=== PATIENT | female | born 1960 | race Caucasian/White ===

== ENCOUNTER 2016-09-15 09:46 | Observation (INO) | payer MEDICAID ==
[2016-09-15 09:52] VITALS: BMI 33.0
[2016-09-15 09:54] VITALS: RESP 18
--- NOTE | 2016-09-15 10:31 | C.PDOC ---
History Of Present Illness 56yr old female referred by Dr. Martinez, presents to the ER for persistent foreign body sensation in the right tonsils for the past 2 months. Patient states the feeling started after eating fish. Patient states the pain is sharp and localized. Patient is referred for a CT scan. Patient denies fever, nausea, vomiting, throat swelling, neck pain, weakness or numbness. REFERRED DR MARTINEZ FOR PERSIST FB SENSATION R TONSIL X 2 MONTHS. PS ONSET SINCE EATING FISH. SHARP, LOCALIZED. SP ABX, DEX BUT NO IMPROVE. REFERRED FOR CT EXAM NAD NONTOXIC HEENT MILD R TONSIL/POST PHARYNX SWELL; NO EXUDATE, ERYTHEMA; UVULA MIDLINE; NO DROOL ,VOICE ABN Time Seen by Provider: 09/15/16 10:25 Chief Complaint (Nursing): ENT Problem History Per: Patient History/Exam Limitations: None Onset/Duration Of Symptoms: Persistent (2 months) Current Symptoms Are (Timing): Still Present Past Medical History Reviewed: Historical Data, Nursing Documentation, Vital Signs Vital Signs: Last Vital Signs Temp 98.6 F 09/15/16 09:52 Pulse 69 09/15/16 09:52 Resp 18 09/15/16 09:52 BP 132/85 09/15/16 09:52 Pulse Ox 98 09/15/16 11:09 Family History: States: No Known Family Hx Review Of Systems Except As Marked, All Systems Reviewed And Found Negative. Constitutional: Negative for: Fever ENT: Positive for: Other (Foreign body sensation in the tonsils ). Negative for : Throat Swelling Gastrointestinal: Negative for: Nausea, Vomiting Musculoskeletal: Negative for: Neck Pain Neurological: Negative for: Weakness, Numbness Physical Exam - Physical Exam Appears: Non-toxic, No Acute Distress Skin: Warm, Dry, No Rash Head: Atraumatic, Normacephalic Oral Mucosa: Moist Gingiva: Normal Appearing Throat: No Erythema, No Exudate, No Drooling, Other (Mild right tonsil, posterior pharynx swelling. Uvula is midline. ) Neck: Normal, Normal ROM, Supple Chest: Symmetrical, No Tenderness Cardiovascular: Rhythm Regular, No Friction Rub, No Murmur Respiratory: Normal Breath Sounds, No Rales, No Rhonchi, No Wheezing, No Plerual Rub Gastrointestinal/Abdominal: Normal Exam, Soft, No Tenderness, No Guarding, No Rebound Extremity: Normal ROM, No Swelling Neurological/Psych: Oriented x3, Normal Speech, Normal Motor ED Course And Treatment - Laboratory Results Result Diagrams: 09/15/16 11:24 09/15/16 11:24 O2 Sat by Pulse Oximetry: 98 Progress - Re-Evaluation Re-evaluation Note: 09/15/16 10:[address] MARTINEZ Medical Decision Making Medical Decision Making: PLAN: * CT - Neck * CBC * Admit to hospital ED OBSERVATION Discharge: Yes Date of observation admission: 09/15/16 Time of observation admission: 10:30 - Observation admission statement Patient is being placed in observation because:: TONSIL FB SENSATION - Goals of Observation Goals of observation are:: RO FB, ABSCESS - Progress Note Progress Note: 09/15/16 16:10 D/W DR MARTINEZ AWARE OF CT FINDINGS REQUESTS DC FLEXERIL RX X 7 DAYS, FU OFFICE NAD EXAM [facility] Disposition Counseled Patient/Family Regarding: Studies Performed, Diagnosis, Need For Followup, Rx Given - Disposition Disposition: HOME/ ROUTINE Disposition Time: 16:11 Condition: IMPROVED - Clinical Impression Clinical Impression: Throat pain - Scribe Statement The provider has reviewed the documentation as recorded by the Janae Bell Provider Attestation: All medical record entries made by the Janae were at my direction and personally dictated by me. I have reviewed the chart and agree that the record accurately reflects my personal performance of the history, physical exam, medical decision making, and the department course for this patient. I have also personally directed, reviewed, and agree with the discharge instructions and disposition.
[2016-09-15 11:38] LABS: BASO % 0.6 % (0.0-2.0); EOS # 0.1 K/uL (0.0-0.7); EOS % 1.3 % (0.0-4.0); HEMATOCRIT 42.4 % (34.0-47.0); LYMPH # 1.7 K/uL (1.0-4.3); LYMPH % 29.5 % (20.0-40.0); MEAN CELL VOLUME 88.8 fL (81.0-99.0); MEAN CORPUSCULAR HEMOGLOBIN 29.9 pg (27.0-31.0); MEAN CORPUSCULAR HGB CONC 33.6 g/dL (33.0-37.0); MEAN PLATELET VOLUME 8.4 fL (7.2-11.7); MONO # 0.6 K/uL (0.0-0.8); MONO % 10.6 % (0.0-10.0); NRBC % 0.1 % (0.0-2.0); RED CELL DISTRIBUTION WIDTH 13.4 % (11.5-14.5); WHITE BLOOD COUNT 5.9 K/uL (4.8-10.8)
[2016-09-15 11:39] LABS: CHLORIDE 100 mmol/L (98-107); POTASSIUM 4.2 mmol/L (3.6-5.2); SODIUM 138 mmol/L (132-148)
[2016-09-15 11:42] LABS: BLOOD UREA NITROGEN 10 mg/dL (7-17); CARBON DIOXIDE 25 mmol/L (22-30); GFR AFRICAN-AMERICAN > 60; GLUCOSE,RANDOM 89 mg/dL (65-105)
[2016-09-15 11:43] LABS: CALCIUM 9.4 mg/dl (8.6-10.4)
[2016-09-15] MEDS ORDERED: Iohexol 350mg/ml 100 ML ONE (14:59)
--- NOTE | 2016-09-15 16:08 | CT ---
CT scan neck dated 09/15/2016. History: Right tonsil foreign body sensation. Swelling. Contiguous helical/transaxial sections of the neck performed in standard fashion following intravenous injection of approximately 100 cc of Omnipaque 350 contrast material. Additional 2 dimensional sagittal and coronal reformats provided. No prior study available for comparison. Radiation dose. Total DLP = 384.6 mGy-cm. Findings: Study is limited due to significant streak and beam hardening artifact arising from dental amalgam, obscuring portions of the oral cavity. The tonsils are not well delineated. Both tonsils appear prominent however no obvious peritonsillar abscess seen. No radiopaque foreign bodies are identified Parapharyngeal fat spaces are relatively symmetric. There is mild asymmetry of the vallecula which could be due to some residual and or retained secretion as well some encroachment of lingual tonsil. Free margin of the epiglottis is unremarkable. The aryepiglottic folds and pyriform sinuses are symmetric. The vocal cords are also symmetric. Parotid and submandibular glands unremarkable. Multiple small nonspecific bilateral cervical lymph nodes nonspecific. No large cervical mass or collection seen. Note made of calcification in the left lobe thyroid gland with what could represent surrounding low-attenuation. Thyroid ultrasound recommended to exclude underlying thyroid lesion. . The carotid arteries are patent throughout without evidence of significant stenosis though there is small calcified plaque seen along the posteromedial aspect left carotid bifurcation. Both vertebral arteries are visible on and relatively symmetric. Lung apices are clear. Note is made of subtotal opacification right maxillary sinus which appears to be associated with some central calcifications suggesting inspissated secretion and or old dystrophic type inflammatory calcification; rule out underlying fungal infection. Minimal mucosal thickening floor left maxillary antrum. Old fracture deformity left lamina papyracea. Mild multilevel degenerative spondylosis of the cervical spine. Impression: No evidence of foreign body within or about the palatine tonsils. [place] tonsils are not well delineated ( due to significant crossing streak and beam hardening artifact arising from dental amalgam) though appear somewhat prominent. No peritonsillar abscess seen Multiple small nonspecific bilateral cervical lymph nodes. Calcification left lobe thyroid gland possibly surrounded by an area of low attenuation. Recommend followup thyroid ultrasound. Subtotal opacification right maxillary sinus as above.
[2016-09-15 16:37] VITALS: BP 128/82; PULSE 62; TEMP 98.2; O2SAT 99
== END 2016-09-15 16:11 | disposition home or self-care (01) ==
LOC: C.ER 09:46 → C.9OBSV 10:30
PROVIDERS: ADMIT Emergency Medicine; ATTEND Emergency Medicine
DX: R07.0 Pain in throat (principal); R09.89 Other specified symptoms and signs involving the circulatory and respiratory systems

== ENCOUNTER 2017-05-06 09:43 | Day surgery (SDC) | payer MEDICAID ==
[2017-04-27 08:07] VITALS: BMI 34.0
--- NOTE | 2017-05-06 13:18 | CP.SDSHP ---
Same Day Surgery H & P - History Proposed Procedure: US guided FNA of left thyroid Pre-Op Diagnosis: Thyroid nodule - Allergies Allergies: Allergies No Known Allergies Allergy (Verified 09/15/16 09:51) - Physical Exam Mental Status: Alert & Oriented x3 - Impression Impression: Pt with partially calcified left thyroid nodule. The right nodules are subcentimeter. US guided FNA of left thyroid nodule. Pt. Evaluated Today:Candidate for Anesthesia & Procedure: No - Date & Time Date: 05/06/17 Time: 13:00 Short Stay Discharge - Short Stay Discharge Admitting Diagnosis/Reason for Visit: THYROID NODULE
--- NOTE | 2017-05-06 13:20 | PCM.SURG1 ---
Surgeon's Initial Post Op Note - Surgeon's Notes Surgeon: Alcira Wilson Testing And Regulating Technician: NONE Type of Anesthesia: Local Pre-Operative Diagnosis: Left thyroid nodule Operative Findings: US showed a calcified left thyroid nodule. Post-Operative Diagnosis: Left thyroid nodule Operation Performed: US guided FNA of left thyroid nodule Specimen/Specimens Removed: 25 g FNA x 4 passes Estimated Blood Loss: EBL {In ML}: 0 Blood Products Given: N/A Drains Used: No Drains Post-Op Condition: Good Date of Surgery/Procedure: 05/06/17 Time of Surgery/Procedure: 13:05
--- NOTE | 2017-05-07 13:52 | US ---
PROCEDURE: Date of Procedure: 05/06/2017 PROCEDURE: 1. Ultrasound guided FNA of left thyroid nodule, CPT 64353 2. Ultrasound guidance for FNA, 69347 Medications: 3cc 1% Lidocaine HISTORY: Enlarged left thyroid nodule. TECHNIQUE: Following informed consent and procedure time-out, a limited ultrasound patient's neck confirmed the presence of a 1.9 cm complex left thyroid nodule which is predominantly solid and partially calcified. After the patient's neck was prepped and draped in the usual sterile fashion, the skin was anesthetized with 1% lidocaine. Ultrasound-guided fine needle aspiration was then performed of the dominant left thyroid nodule. A total of 4 passes were made into the nodule with 25 gauge needle under ultrasound guidance. The FNA specimen was sent for routine pathology. Post biopsy ultrasound showed no hematoma. IMPRESSION: Ultrasound-guided FNA of the dominant left thyroid nodule.
== END 2017-05-06 13:35 | disposition home or self-care (01) ==
LOC: C.SPRAD 09:43
PROVIDERS: ATTEND Radiology Vascular & Interventional Radiology
DX: C73 Malignant neoplasm of thyroid gland (principal)

== ENCOUNTER 2017-10-15 08:06 | Emergency (ER) | payer MEDICAID ==
[2017-10-15 08:06] VITALS: BMI 34.0
--- NOTE | 2017-10-15 08:32 | C.PDOC ---
History Of Present Illness 57 y/o female presents to ED with complaints of bilateral low back pain for more than one week. Patient states symptoms developed after making a twisting movement while getting out of bed. Patient saw PMD 10/08 who gave her Tramadol, has been compliant with medication but no relief which prompted visit to ED today. Patient denies abdominal pain, fever, dysuria, bowel/bladder incontinence or any other complaints at this time. Time Seen by Provider: 10/15/17 08:18 Chief Complaint (Nursing): Back Pain History Per: Patient History/Exam Limitations: no limitations Onset/Duration Of Symptoms: Days Current Symptoms Are (Timing): Still Present Quality Of Discomfort: "Pain" Past Medical History Reviewed: Historical Data, Nursing Documentation, Vital Signs Vital Signs: Last Vital Signs Temp 97.8 F 10/15/17 08:13 Pulse 113 H 10/15/17 08:13 Resp 20 10/15/17 08:13 BP 143/96 H 10/15/17 08:13 Pulse Ox 97 10/15/17 09:21 - Medical History PMH: Asthma, Cardia Arrhythmia (TACHYCARDIA) Surgical History: No Surg Hx Family History: States: No Known Family Hx - Social History Hx Alcohol Use: No Hx Substance Use: No - Immunization History Hx Tetanus Toxoid Vaccination: No Hx Influenza Vaccination: No Hx Pneumococcal Vaccination: No Review Of Systems Except As Marked, All Systems Reviewed And Found Negative. Gastrointestinal: Negative for: Abdominal Pain Genitourinary: Negative for: Dysuria, Hematuria Musculoskeletal: Positive for: Back Pain Physical Exam - Physical Exam Appears: Non-toxic, Other (In moderate pain) Skin: Warm, Dry, No Rash Head: Atraumatic, Normacephalic Oral Mucosa: Moist Neck: Normal ROM, Supple Cardiovascular: Rhythm Regular, Other (Tachycardic) Respiratory: Normal Breath Sounds, No Rales, No Rhonchi, No Wheezing Gastrointestinal/Abdominal: Soft, No Tenderness, No Guarding, No Rebound Back: No CVA Tenderness, Paraspinal Tenderness, Other (Lumbar tenderness) Extremity: Normal ROM, Capillary Refill (<2 seconds) Neurological/Psych: Oriented x3, Normal Speech, Normal Motor, Normal Sensation ED Course And Treatment O2 Sat by Pulse Oximetry: 97 (RA) Pulse Ox Interpretation: Normal Progress Note: Pt requested xray. xray viewed by me, showed no dislocation or fracture. Toradol, Flexiril and Prednisone administered. On re eval pt feeling better d/c home advised to fbal with PMD Medical Decision Making Medical Decision Making: OR OFFICE TECHNOLOGIST AWARE reviewed: KIMBERLY JOYCE 1960 2 female 22 [facility] [id number] KIMBERLY JOYCE 1960 1 female 22 [facility] [id number] Report Criteria Prescriptions Filled ID Written Drug QTY Days Prescriber Rx # Pharmacy* Refills Daily Dose Pymt Type OFFICE TECHNOLOGIST 10/13/2017 1 10/12/2017 [id number] CAP 30.[id number] ([id number]) 0 Comm Ins OR 10/08/2017 1 10/08/2017 TRAMADOL HCL 50 MG TABLET 60.0 [id number] ( [id number]) 0 15.0 [facility] Comm Ins [place] 06/30/2017 2 06/30/2017 OXYCODONE-ACETAMINOPHEN 5-325 15.0 4 EV MADELINE [id number] CARLOS ([id number]) 0 28.13 [facility] Comm Ins OR Filled ID Written Drug QTY Days Prescriber Rx # Pharmacy* Refills Daily Dose Pymt Type OFFICE TECHNOLOGIST 01/23/2017 2 01/15/2017 ACETAMINOPHEN-COD #3 TABLET 45.0 15 RA TIK [id number] [place]LOS ([id number]) 0 13.5 [facility] Comm Ins [place] Disposition Counseled Patient/Family Regarding: Diagnosis, Need For Followup, Rx Given - Disposition Referrals: Marquis Baker MD [Medical Doctor] - Disposition: HOME/ ROUTINE Disposition Time: 09:50 Condition: STABLE Additional Instructions: FOLLOW UP WITH YOUR DOCTOR IN 1-2 DAYS USE MEDICATIONS DIRECTED RETURN TO ER IF SYMPTOMS WORSEN Prescriptions: Cyclobenzaprine [Flexeril] 10 mg PO BID PRN #15 tab PRN Reason: Muscle Spasm Naproxen 375 mg PO BID PRN #20 tablet PRN Reason: pain predniSONE [predniSONE Tab] 40 mg PO DAILY #8 tab Instructions: Low Back Pain in Adults Forms: [facility] (Japanese) Print Language: JAPANESE - Clinical Impression Clinical Impression: Low back pain - Scribe Statement The provider has reviewed the documentation as recorded by the Scribcarline Gilbert All medical record entries made by the Vandanaibcarline were at my direction and personally dictated by me. I have reviewed the chart and agree that the record accurately reflects my personal performance of the history, physical exam, medical decision making, and the department course for this patient. I have also personally directed, reviewed, and agree with the discharge instructions and disposition.
[2017-10-15 10:00] VITALS: BP 125/86; PULSE 72; RESP 14; TEMP 98.7; O2SAT 96
--- NOTE | 2017-10-15 14:10 | RAD ---
PROCEDURE: Radiographs of the Lumbar Spine. HISTORY: low back pain COMPARISON: No prior. FINDINGS: BONES: No acute compression fractures no retropulsed fragments. Vertebral bodies exhibit normal stature. Minor dextroscoliosis centered at the L2-L3 level. Vertebral bodies otherwise exhibit normal alignment. DISC SPACES: Mild multilevel degenerative spondylosis. Changes include varying degrees of mild posterior disc space narrowing, endplate eburnation and small anterolateral as well as tiny posterior osteophytes. Facets mildly hypertrophic L5-S1 through the L3-L4 levels in somewhat decreasing order of severity. OTHER FINDINGS: Large amount of stool seen throughout the colon consistent with constipation IMPRESSION: No acute fractures. Mild multilevel degenerative spondylosis. See above discussion for additional details and findings.
== END 2017-10-15 10:55 | disposition home or self-care (01) ==
LOC: C.ER 08:06
DX: M54.5 Low back pain (principal)
CPT/HCPCS: 72100; 96372; 99284; J1885

== ENCOUNTER 2018-10-18 12:20 | Outpatient (CLI) | payer MEDICAID | END 2018-10-18 12:21 | disposition home or self-care (01) | LOC: C.RADIC 12:20 | DX: M25.522 Pain in left elbow (principal) ==